=== PATIENT | male | born 2000 | race African-American/Black ===

== ENCOUNTER 2023-06-28 15:38 | Emergency (ER) | payer OTHER, SELFPAY ==
--- NOTE | ~2023-06-28 | XR_ITS ---
EXAM: XR ankle RT min 3V DATE: 06/28/2023 15:55 HISTORY: lateral ankle pain after rolling ankle . COMPARISON: None available. FINDINGS: Normal mineralization. No fracture or dislocation. No lytic or blastic lesion. Joint space s are maintained. No erosion or periosteal change. Soft tissues within normal limits. IMPRESSION: No acute osseous finding in the right ankle. Reviewed, dictated and finalized at location K. [employer]
--- NOTE | 2023-06-28 15:39 | ED.LOWEXIN ---
HPI - Extremity Injury (Lower) General Chief Complaint: Extremity Injury, Lower Stated Complaint: Sprained ankle Time Seen by Provider: 06/28/23 15:39 Source: patient Mode of arrival: ambulatory Limitations: no limitations History of Present Illness HPI Narrative: Patient is a 22-year-old male who presents with right ankle pain. Patient still you will to ambulate unassisted. Patient's was playing basketball yesterday and rolled ankle repair. Denies any swelling or bruising. States he was able to finish playing basketball after short break. Has not taken anything for symptoms. Patient has been wrapping ankle. Related Data Home Medications Medication Instructions Recorded Confirmed No Home Medications 06/28/23 06/28/23 Allergies Allergy/AdvReac Type Severity Reaction Status Date / Time No Known Allergies Allergy Verified 06/28/23 16:10 Review of Systems Review of Systems: All systems reviewed & are unremarkable except as noted in HPI and below Constitutional: Constitutional: Denies body ache(s), Denies chills, Denies fatigue, Denies fever(s), Denies headache(s), Denies malaise and Denies weakness Eyes: Eyes: Denies blurry vision, Denies irritation and Denies loss of vision ENT: Denies otalgia, Denies headache(s), Denies nasal discharge, Denies sinus pain and Denies sore throat Cardiovascular: Cardiovascular: Denies chest pain, Denies irregular heart rhythm and Denies dyspnea Respiratory: Respiratory: Denies dyspnea Gastrointestinal: Gastrointestinal: Denies abdominal pain, Denies melena, Denies hematochezia, Denies diarrhea, Denies nausea and Denies vomiting Musculoskeletal: Musculoskeletal: Denies back pain, Denies myalgias and Reports arthralgias Integumentary/Breasts: Skin/Breast: Denies pruritus and Denies rash Neurologic: Denies headache(s), Denies loss of vision and Denies weakness Psychiatric: Psychiatric: Reports no additional psychiatric complaints Endocrine: Endocrine: Denies fatigue PMFSH Comments At time of signature, agree with nursing past medical, surgical, social and family history. There is no relevant family history pertinent to the presenting complaint. Exam Const: General: cooperative, healthy appearing, comfortable, no acute distress and well nourished Nutritional Appearance: well nourished Orientation/consciousness: patient oriented x3 Limitations: no limitations HENMT: Head: normal to inspection, normocephalic and atraumatic Ears: hearing grossly normal bilaterally and external ears normal Face/Nose/Sinus: Normal external nose present, normal facial exam and face symmetric Face and sinus: normal facial exam and face symmetric Mouth: Yes lip normal Eyes: General: appearance normal, both eyes and all related structures Alignment and Position: alignment normal and position normal Periorbital: periorbital findings normal Eyelids: eyelids normal Pupils: Equal, round and reactive pupils present EOM: EOMs intact bilaterally Neck: Neck: normal visual inspection, full ROM and supple Chest: Chest palpation & inspection: normal inspection of the chest Resp: Effort & Inspection: normal respiratory effort and able to speak in complete sentences Auscultation: clear to auscultation bilaterally Cardio: Rate: regular rate Rhythm: regular rhythm Heart sounds: S1 normal heart sound present and S2 normal heart sound present GI: Inspection: normal to inspection Skin: General skin exam: normal color and no rashes or lesions noted Neuro: General: patient oriented x3 and moves all extremities Cranial nerves: Yes Equal, round and reactive pupils present Speech: normal speech Gait exam (Neuro): Normal gait present Extrem: General: normal to inspection, full ROM and no edema Right lower extremity: ankle Details: normal to inspection, tenderness Location: anterolaterally and normal ROM; no swelling, no ecchymosis and achilles tendon exam normal and foot Details: normal capillary refill
[2023-06-28 15:46] VITALS: BP 126/70; PULSE 79; RESP 16; TEMP 36.6; O2SAT 99
== END 2023-06-28 16:36 | disposition home or self-care (01) ==
PROVIDERS: Emergency Provider Nurse Practitioner Family
DX: S93.401A Sprain of unspecified ligament of right ankle, initial encounter (principal); S96.911A Strain of unspecified muscle and tendon at ankle and foot level, right foot, initial encounter; X50.9XXA Other and unspecified overexertion or strenuous movements or postures, initial encounter; X50.0XXA Overexertion from strenuous movement or load, initial encounter; Y93.67 Activity, basketball
CPT/HCPCS: 73610; 99213; G0463

== ENCOUNTER 2023-12-09 22:50 | Emergency (ER) | payer OTHER, SELFPAY ==
--- NOTE | ~2023-12-09 | XR_ITS ---
EXAMINATION: XR chest 2V DATE: 12/09/2023 23:18 INDICATION: Chest pain TECHNIQUE: PA and lateral views of the chest were obtained. COMPARISON: None FINDINGS: The lungs are clear with no focal airspace opacities, pulmonary edema, pleural effusion or pneumothor ax. The cardiomediastinal silhouette is normal. Visualized bones and soft tissues are unremarkable. IMPRESSION: 1. Normal chest radiograph. Reviewed, dictated and finalized at location A. IMPRESSION: 1. Normal chest radiograph.
[2023-12-09 22:52] VITALS: BP 137/81; PULSE 83; RESP 14; TEMP 36.8; O2SAT 100
--- NOTE | 2023-12-09 22:57 | ECG_ITS ---
SEE SCANNED COPY FOR CONFIRMED REPORT MTDD
[2023-12-09 23:06] LABS: Basophils Percent Auto 0.4 % (0.2-1.2); Eosinophils Absolute Auto 0.1 K/mm3 (0-0.3); Eosinophils Percent Auto 1.3 % (0-4.4); Hematocrit 50.4 % (42.0-52.0); Hemoglobin 16.9 g/dL (14.0-18.0); Immature Granulocyte Absolute 0.02 K/mm3 (0.00-0.031); Immature Granulocyte Percent A 0.3 % (0-0.5); Lymphocytes Absolute Auto 3.16 K/mm3 (0.9-3.2); Lymphocytes Percent Auto 47.3 % (18.3-44.2); Mean Corpuscular HGB Conc 33.5 g/dl (32-36); Mean Corpuscular Hemoglobin 28.1 pg (26-34); Mean Corpuscular Volume 83.7 fl (80-100); Mean Platelet Volume 8.7 fl (7.4-10.4); Monocytes Absolute Auto 0.4 K/mm3 (0.1-0.6); Monocytes Percent Auto 6.3 % (2.6-8.5); Neutrophils Percent Auto 44.4 % (45.5-73.1); Platelet Count Result 213 k/mm3 (150-375); Red Blood Count 6.02 M/mm3 (4.6-6.20); Red Cell Distribution Width 11.7 % (11.5-14.5); White Blood Count 6.7 K/mm3 (4.5-10.0)
[2023-12-09 23:19] LABS: Alanine Aminotransferase 20 U/L (6-50); Albumin Level 5.1 g/dL (3.5-5.1); Alkaline Phosphatase 97 U/L (38-126); Anion Gap 11 mmol/L (4-12); Aspartate Amino Transferase 25 U/L (17-59); Bilirubin,Total 0.7 mg/dL (0.2-1.3); Blood Urea Nitrogen 20 mg/dL (9-20); Calcium 9.1 mg/dL (8.4-10.2); Carbon Dioxide 25 mmol/L (22-30); Chloride 103 mmol/L (98-107); Estimated CRCL calculation 89 ml/min; Estimated Glomerular Filt Rate > 60; Glucose 105 mg/dL (65-110); Lipase 87 U/L (23-300); Potassium 3.4 mmol/L (3.4-5.0); Sodium 139 mmol/L (137-145)
[2023-12-09 23:21] LABS: INR 0.9; Partial Thromboplastin Time 29.2 Seconds (22.3-36.8); Prothrombin Time 12.5 Seconds (11.1-14.7)
[2023-12-09 23:30] LABS: Troponin I < 0.012 ng/mL (0.000-0.034)
[2023-12-09 23:33] VITALS: PULSE 70; RESP 30; O2SAT 100
[2023-12-09 23:45] VITALS: PULSE 68; RESP 22; O2SAT 100
--- NOTE | 2023-12-09 23:51 | PC.NURSE ---
dwight burgess'd pt to not received aspirin 324mg at this time.
[2023-12-10 00:01] VITALS: PULSE 64; O2SAT 100
--- NOTE | 2023-12-10 00:52 | ED.CHESTPAIN ---
HPI - Chest Pain General Chief Complaint: Chest Pain Stated Complaint: chest pain, SOB Time Seen by Provider: 12/09/23 23:06 Source: patient Mode of arrival: ambulatory Limitations: no limitations History of Present Illness HPI narrative: This is a 23-year-old male who presents to the ED with chief complaint of sudden onset chest pain, shortness of breath while by accounts tonight. Reports that he was watching the basketball game this started to happen. Denies any association with exertion. States that the chest pain was all around the midsternal area and was associated with shortness of breath. All this lasted for few seconds and then fully resolved. He has not had any recurrent bouts of the pain or dyspnea. Denies any recent illness, fevers, chills. Denies cough, abdominal pain diarrhea, nausea, vomiting, sweats. Denies syncope, history of blood clot, recent immobilization. Related Data Home Medications Medication Instructions Recorded Confirmed No Home Medications 06/28/23 06/28/23 Allergies Allergy/AdvReac Type Severity Reaction Status Date / Time No Known Allergies Allergy Verified 12/09/23 23:21 Review of Systems Review of Systems: All systems as dictated in HPI Exam Narrative: GENERAL: Well-appearing, well-nourished, and in no acute distress. HEAD: Normocephalic, atraumatic. EYES: PERRLA and EOMI. ENT: Nares clear, no rhinorrhea or epistaxis. Mucous membranes moist. Oropharynx without tonsillar hypertrophy exudate or other lesions. NECK: Supple. No adenopathy or masses. CHEST: No respiratory distress. Clear to auscultation. No wheezes rales or rhonchi HEART: Regular rate and rhythm. No murmur heard. Normal peripheral pulses. ABDOMEN: Soft, nontender, nondistended, normal active bowel sounds. MSK: Normal range of motion. No edema. SKIN: Warm, dry, no rash. NEURO: Alert and oriented x3. No focal deficits. PSYCH: Normal mood and affect. Course Vital Signs Vital signs: Vital Signs Temperature 98.2 F 12/09/23 22:52 Pulse Rate 83 12/09/23 22:52 Respiratory Rate 14 12/09/23 22:52 Blood Pressure 137/81 12/09/23 22:52 Pulse Oximetry 100 12/09/23 22:52 Oxygen Delivery Room Air 12/09/23 22:52 Temperature 98.2 F 12/09/23 22:52 Pulse Rate 64 12/10/23 00:01 Respiratory Rate 22 H 12/09/23 23:45 Blood Pressure 137/81 12/09/23 22:52 Pulse Oximetry 100 12/10/23 00:01 Oxygen Delivery Room Air 12/10/23 00:01 MDM - Chest Pain MDM Narrative Medical decision making narrative: This is a 23-year-old male who presents to the ED with chief complaint of chest pain and shortness of breath that lasted for few seconds and has since fully resolved. Vitals are normal. Exam is benign. No cardiovascular risk factors and no risk factors for blood clot. PERC rule negative. Lab work is grossly unremarkable. Troponin is normal. Chest x-ray is also normal. Re-evaluation patient continues to be symptom free. He feels ready to go home. Symptoms consistent with atypical chest pain versus panic attack versus costochondritis. Pt will be discharged in stable condition. Return precautions given and supportive measures discussed. Pt is understanding and agreeable with plan for discharge and follow-up with PCP. Lab Data 12/09/23 22:58 12/09/23 22:58 Labs: Lab Results 12/09/23 Range/Units 22:58 WBC 6.7 (4.5-10.0) K/mm3 RBC 6.02 (4.6-6.20) M/mm3 Hgb 16.9 (14.0-18.0) g/dL Hct 50.4 (42.0-52.0) % MCV 83.7 (80-100) fl MCH 28.1 (26-34) pg MCHC 33.5 (32-36) g/dl RDW 11.7 (11.5-14.5) % Plt Count 213 (150-375) k/mm3 MPV 8.7 (7.4-10.4) fl Immature Gran % (Auto) 0.3 (0-0.5) % Neut % (Auto) 44.4 L (45.5-73.1) % Lymph % (Auto) 47.3 H (18.3-44.2) % Addison % (Auto) 6.3 (2.6-8.5) % Eos % (Auto) 1.3 (0-4.4) % Baso % (Auto) 0.4 (0.2-1.2) % Lymph # (Auto) 3.16 (0.9-3.2) K/mm3 Addison # (Auto) 0.4 (0
[2023-12-10 01:01] VITALS: BP 121/77; PULSE 57; RESP 19; O2SAT 99
== END 2023-12-10 01:17 | disposition home or self-care (01) ==
PROVIDERS: Emergency Medicine; Emergency Provider Physician Assistant
DX: R07.89 Other chest pain (principal); R94.31 Abnormal electrocardiogram [ECG] [EKG]
CPT/HCPCS: 36415; 71046; 80053; 83690; 84484; 85025; 85610; 85730; 93005; 99284